=== PATIENT | female | born 1955 | race Caucasian/White ===

== ENCOUNTER → 2016-09-03 | Emergency (ER) | payer OTHER ==
[2016-09-03 05:23] VITALS: BP 114/64; PULSE 63; TEMP 97.5; BMI 29.9
--- NOTE | 2016-09-03 05:27 | PDOC ---
History of Present Illness - General Chief Complaint: Psychiatric Stated Complaint: PANIC ATTACK Time Seen by Provider: 09/03/16 05:08 - History of Present Illness Initial Comments: 09/03/16 05:18 CHIEF COMPLAINT: panic attack HISTORY OF PRESENT ILLNESS: 61 yo F with hx of hypothyroidism, HLD, HTN, and anxiety disorder presents to ED with c/o of "panic attack." Patient states she had an argument with someone at home and then became very anxious and shaky. She has a history of anxiety and takes clonazepam as needed, which she did today just as she called the ambulance. She denies any chest pain or SOB. She denies any suidicidal/homicidal ideation. No recent travel or sick contacts. PAST MEDICAL HISTORY: as per HPI. FAMILY HISTORY: Denies SOCIAL HISTORY:Denies tobacco, alcohol, illicit drug use. SURGICAL HISTORY: Denies ALLERGIES: PCN, ibuprofen, "stool softener" REVIEW OF SYSTEMS General/Constitutional: Denies fever or chills. Denies weakness, weight change. HEENT: Denies change in vision. Denies ear pain or discharge. Denies sore throat. Cardiovascular: Denies chest pain or shortness of breath. Respiratory: Denies cough, wheezing, or hemoptysis. Gastrointestinal: Denies nausea, vomiting, diarrhea or constipation. Denies rectal bleeding. Genitourinary: Denies dysuria, frequency, or change in urination. Musculoskeletal: Denies joint or muscle swelling or pain. Denies neck or back pain. Skin and breasts: Denies rash or easy bruising. Neurologic: Denies headache, vertigo, loss of consciousness, or loss of sensation. Psychiatric: "I feel anxious." PHYSICAL EXAM General Appearance: Well-appearing, appropriately dressed. No apparent distress , no intoxication. HEENT: EOMI, PERRLA, normal ENT inspection, normal voice, TMs normal, pharynx normal. No conjunctival pallor. No photophobia, scleral icterus. Neck: Supple. Trachea midline. No tenderness, rigidity, carotid bruit, stridor , lymphadenopathy, or thyromegaly. Respiratory/Chest: Lungs CTAB. No shortness of breath, chest tenderness, respiratory distress, accessory muscle use. No crackles, rales, rhonchi, stridor , wheezing, dullness Cardiovascular: RRR. S1, S2. No JVD, murmur, bradycardia, tachycardia. Vascular Pulses: Dorsalis-Pedis (R): 2+, Dorsalis-Pedis (L): 2+ Gastrointestinal/Abdominal: Normal bowel sounds. Abdomen soft, non-distended. No tenderness or rebound tenderness. No organomegaly, pulsatile mass, guarding , hernia, hepatomegaly, splenomegaly. Lymphatic: No adenopathy, tenderness. Musculoskeletal/Extremities: Normal inspection. FROM of all extremities, normal capillary refill. Pelvis Stable. No CVA tenderness. No tenderness to extremities, pedal edema, swelling, erythema or deformity. Integumentary: Appropriate color, dry, warm. No cyanosis, erythema, jaundice or rash Neurologic: hotel server II-XII intact. Fully oriented, alert. Appropriate mood/affect. Motor strength 5/5. No appreciable EOM palsy, facial droop or sensory deficit. 09/03/16 05:28 Past History - Past Medical History Allergies/Adverse Reactions: Allergies Allergy/AdvReac Type Severity Reaction Status Date / Time Penicillins Allergy Severe Hives Verified 09/03/16 05:12 ibuprofen [From Motrin] Allergy Intermediate Nausea Verified 09/03/16 05:12 STOOL SOFTNER Allergy Uncoded 09/03/16 05:12 Home Medications: Ambulatory Orders Finasteride 5 mg PO DAILY 01/24/16 Levothyroxine [Synthroid -] 88 mcg PO DAILY 01/24/16 Losartan Potassium 100 mg PO DAILY 01/24/16 Verapamil HCl [Verapamil ER] 180 mg PO DAILY 01/24/16 Clonazepam 0.25 mg PO HS #3 tab MDD 1 09/03/16 Ranitidine [Zantac -] 150 mg PO DAILY 09/03/16 Cancer: Yes (thyroid) Cardiac Disorders: Yes (SLOW HEART) GI Disorders: Yes (HEMMORHOIDS) HTN: Yes Hypercholesterolemia: Yes Suicide Attempt (Hx): No Thyroid Disease: Yes (HYPO) - Immunization History Td Vaccination: Yes Immunization Up to Date: Yes - Psycho/Social/Smoking Cessation Hx Anxiety: Yes Suicidal Ideation: No Smoking Status: No Smoking History: Never smoked Years of Tobacco Use: 0 Have you smoked in the past 12 months: No Number of Cigarettes Smoked Daily: 0 Cigars Per Day: 0 Hx Alcohol Use: No Drug/Substance Use Hx: No Substance Use Type: None Hx Substance Use Treatment: No Medical Decision Making - Medical Decision Making 09/03/16 05:31 61 yo F with hx of hypothyroidism, HLD, HTN, and anxiety disorder presents to ED with c/o of "panic attack." -EKG Patient states she is running out of her clonazepam and request medication. Discussed with patient that she needs to follow up with psych for continuing management of psych meds. 09/03/16 05:55 EKG unchanged from prior. [place] [employer] checked, no indication of controlled substance abuse. Will rx 3 tab clonazepam until patient can see psych. Patient reassessed. At this time she is sleeping in stretcher but arousable. She states she is feeling sleepy. Advised patient to f/u with psychiatry for further evaluation and management of chronic anxiety. Patient verbalized understanding and agrees to plan. *DC/Admit/Observation/Transfer Diagnosis at time of Disposition: Anxiety - Discharge Dispostion Admit: No - Prescriptions Prescriptions: Clonazepam 0.25 mg PO HS #3 tab MDD 1 - Referrals Referrals: Irwin Coyne MD [Primary Care Provider] - - Patient Instructions Printed Discharge Instructions: DI for Anxiety -- Adult Additional Instructions: Please take medication as prescribed. As discussed, you need to follow up with psychiatrist for further evaluation and management of your anxiety. If you experience any thoughts of suicide or homicide, please return to the ER immediately.
--- NOTE | 2016-09-03 11:35 | EKG ---
Test Reason : Blood Pressure : / mmHG Vent. Rate : 061 BPM Atrial Rate : 061 BPM P-R Int : 202 ms QRS Dur : 094 ms QT Int : 458 ms P-R-T Axes : 022 -34 054 degrees QTc Int : 461 ms NORMAL SINUS RHYTHM LEFT AXIS DEVIATION MODERATE VOLTAGE CRITERIA FOR LVH, MAY BE NORMAL VARIANT POSSIBLE LATERAL INFARCT , AGE UNDETERMINED ABNORMAL ECG WHEN COMPARED WITH ECG OF 28-JUN-2015 00:36, NONSPECIFIC T WAVE ABNORMALITY HAS REPLACED INVERTED T WAVES IN ANTERIOR LEADS Confirmed by ANGLE LIRA MD ([id number]) on 09/03/2016 11:34:54 AM Referred By: Confirmed By:ANGLE LIRA MD
== END | disposition home or self-care (01) ==
LOC: JER 04:59
DX: F41.9 Anxiety disorder, unspecified (principal); I10 Essential (primary) hypertension; E78.00 Pure hypercholesterolemia, unspecified; E78.5 Hyperlipidemia, unspecified; E03.9 Hypothyroidism, unspecified
CPT/HCPCS: 93005; 93010; 99282-25

== ENCOUNTER 2018-07-26 14:15 | Emergency (ER) | payer OTHER ==
[2018-07-26 14:58] VITALS: BP 147/78; PULSE 93; TEMP 98.1; BMI 29.2
--- NOTE | 2018-07-26 15:37 | PDOC ---
History of Present Illness - General Chief Complaint: Pain Stated Complaint: ABD PAIN Time Seen by Provider: 07/26/18 14:34 History Source: Patient Exam Limitations: No Limitations - History of Present Illness Travel History: No Initial Comments: 07/26/18 15:08 63-year-old female presents to ED with constipation for the past 3 days. Patient states was at her ENT specialist when she developed severe abdominal pain accompanied with dizziness and so Staffa called EMS and while waiting for EMS she gave herself a suppository secondary to feeling the urge to move her bowels but unable to. Patient states upon ED arrival she went to use the bathroom and was able to pass a small amount of brown stool which alleviated her discomfort. Patient states history of hemorrhoidectomy and constipation but relieved with [id number] medication. Timing/Duration: reports: gone now Quality: reports: moderate, cramping Abdominal Pain Onset Location: reports: RLQ, LLQ Pain Radiation: reports: no radiation Activities at Onset: reports: none Aggravating Factors: improves with: None Alleviating Factors: improves with: Defecation Past History - Travel Traveled outside of the country in the last 30 days: No - Past Medical History Allergies/Adverse Reactions: Allergies Allergy/AdvReac Type Severity Reaction Status Date / Time Penicillins Allergy Severe Hives Verified 09/03/16 05:12 ibuprofen [From Motrin] Allergy Intermediate Nausea Verified 09/03/16 05:12 STOOL SOFTNER Allergy Uncoded 09/03/16 05:12 Home Medications: Ambulatory Orders Finasteride 5 mg PO DAILY 01/24/16 Levothyroxine [Synthroid -] 88 mcg PO DAILY 01/24/16 Losartan Potassium 100 mg PO DAILY 01/24/16 Verapamil HCl [Verapamil ER] 180 mg PO DAILY 01/24/16 Clonazepam 0.25 mg PO HS #3 tab MDD 1 09/03/16 Ranitidine [Zantac -] 150 mg PO DAILY 09/03/16 Cancer: Yes (thyroid) Cardiac Disorders: Yes (SLOW HEART) COPD: No GI Disorders: Yes (HEMMORHOIDS) HTN: Yes Hypercholesterolemia: Yes Thyroid Disease: Yes (HYPO) - Immunization History Td Vaccination: Yes Immunization Up to Date: Yes - Suicide/Smoking/Psychosocial Hx Smoking Status: No Smoking History: Never smoked Years of Tobacco Use: 0 Have you smoked in the past 12 months: No Number of Cigarettes Smoked Daily: 0 Cigars Per Day: 0 Information on smoking cessation initiated: No Hx Alcohol Use: No Drug/Substance Use Hx: No Substance Use Type: None Hx Substance Use Treatment: No Patient Lives Alone: No Lives with/in: spouse/SO Abd/GI Specific PMHX - Complaint Specific PMHX GERD: No GI Ulcer Disease: No Review of Systems - Review of Systems Able to Perform ROS?: Yes Constitutional: No: Symptoms Reported HEENTM: No: Symptoms Reported Respiratory: No: Symptoms reported Cardiac (ROS): No: Symptoms Reported ABD/GI: Yes: Constipated, Abdominal cramping : No: Symptoms Reported Musculoskeletal: No: Symptoms Reported Integumentary: No: Symptoms Reported Endocrine: No: Symptoms Reported Hematologic/Lymphatic: No: Symptoms Reported *Physical Exam - Vital Signs Last Vital Signs Temp Pulse Resp BP Pulse Ox 98.1 F 93 H 16 147/78 100 07/26/18 14:17 07/26/18 14:17 07/26/18 14:17 07/26/18 14:17 07/26/18 14:17 - Physical Exam General Appearance: Yes: Nourished, Appropriately Dressed. No: Apparent Distress Respiratory/Chest: positive: Lungs Clear, Normal Breath Sounds. negative: Respiratory Distress, Accessory Muscle Use Cardiovascular: positive: Regular Rhythm, Regular Rate. negative: Murmur Gastrointestinal/Abdominal: positive: Normal Bowel Sounds, Soft. negative: Distended, Guarding, Rebound, Tenderness Musculoskeletal: negative: CVA Tenderness Extremity: negative: Pedal Edema Integumentary: positive: Normal Color, Warm, Moist Neurologic: positive: Motor Strength 5/5 (ambulatory). negative: Normal Mood/ Affect (anxious and pacing intermittently) Moderate Sedation - Procedure Monitoring Vital Signs: Procedure Monitoring Vital Signs Temperature 98.1 F 07/26/18 14:17 Pulse Rate 93 H 07/26/18 14:17 Respiratory Rate 16 07/26/18 14:17 Blood Pressure 147/78 07/26/18 14:17 O2 Sat by Pulse Oximetry (%) 100 07/26/18 14:17 ED Treatment Course - RADIOLOGY Radiology Studies Ordered: Category Date Time Status KUB (KID UR & BLAD) [RAD] Stat Radiology 07/26/18 14:53 Ordered Medical Decision Making - Medical Decision Making 07/26/18 15:20 Chief complaint: Constipation 3 days causing her increasing abdominal cramping and dizziness. Patient defecated upon my arrival when she arrived to the ER. Patient is currently asymptomatic. Exam: No abdominal tenderness or distention Plan: KUB 07/26/18 16:01 UB shows fecal retention without obstruction. Patient states had one more bowel movement since arrival. Patient states feeling much better. Patient will be given a prescription for mag citrate *DC/Admit/Observation/Transfer Diagnosis at time of Disposition: Constipation - Discharge Dispostion Disposition: HOME Condition at time of disposition: Improved - Referrals Referrals: Irwin Coyne MD [Primary Care Provider] - - Patient Instructions Printed Discharge Instructions: DI for Constipation Additional Instructions: Drink plenty of fluids and increase her ambulation/movement. Please take medication for constipation as prescribed. Return to ED if symptoms return or worsen. - Post Discharge Activity
== END 2018-07-26 16:38 | disposition home or self-care (01) ==
LOC: JER 14:15
DX: K59.00 Constipation, unspecified (principal); I10 Essential (primary) hypertension; E03.9 Hypothyroidism, unspecified; E78.00 Pure hypercholesterolemia, unspecified; Z86.79 Personal history of other diseases of the circulatory system; K64.9 Unspecified hemorrhoids; Z88.0 Allergy status to penicillin; Z88.8 Allergy status to other drugs, medicaments and biological substances
CPT/HCPCS: 74018-TC-FY; 99282-25

== ENCOUNTER 2019-05-28 13:53 | Emergency (ER) | payer OTHER ==
[2019-05-28 14:15] VITALS: BMI 28.1
--- NOTE | 2019-05-28 14:50 | PDOC ---
*Physical Exam - Vital Signs Last Vital Signs Temp Pulse Resp BP Pulse Ox 98.2 F 67 18 130/73 98 05/28/19 14:13 05/28/19 14:13 05/28/19 14:13 05/28/19 14:13 05/28/19 14:13 Discharge - Follow up/Referral Referrals: Irwin Coyne MD [Primary Care Provider] - - Patient Discharge Instructions - Post Discharge Activity
--- NOTE | 2019-05-28 14:55 | PDOC ---
History of Present Illness - General Chief Complaint: Pain Stated Complaint: NAUSEA/CHILLS Time Seen by Provider: 05/28/19 14:50 History Source: Patient, Other (Data Entry Assistant) Exam Limitations: No Limitations - History of Present Illness Initial Comments: 05/28/19 14:55 Juan Ramirez is a 64F with PMH hypothyroidism on Synthroid, HTN on Losartan, and chronic GERD on ranitidine/famotidine presenting with epigastric pain, nausea, diaphoresis, and tremulousness while eating. Patient has history of GERD and takes ranitidine daily, wakes up with epigastric burning each morning. Otherwise has been feeling normally healthy last night and this morning. Says she no longer takes ranitidine and now takes famotidine as of this morning. Took Losartan, famotidine, and Synthroid together this morning and felt fine, went to confucianist service without issue. 2 hours EMPLOYEE RELATION MANAGER, after confucianist went to confucianist basement to eat lunch where there was no heating, took a few bites of rice and meat and began feeling tremulous, diaphoretic, nausea and had epigastric pain. Data Entry Assistant called ambulance to bring patient to ED for evaluation. Episode has since resolved, now asymptomatic and feeling well. Data Entry Assistant at bedside does not report similar symptoms and was eating same food. Denies chest pain, SOB, palpitations, dizziness, weakness, vision problems, abdominal pain, urinary symptoms, C/D. Past History - Past Medical History Allergies/Adverse Reactions: Allergies Allergy/AdvReac Type Severity Reaction Status Date / Time Penicillins Allergy Severe Hives Verified 09/03/16 05:12 ibuprofen [From Motrin] Allergy Intermediate Nausea Verified 09/03/16 05:12 STOOL SOFTNER Allergy Uncoded 09/03/16 05:12 Home Medications: Ambulatory Orders Levothyroxine [Synthroid -] 137 mcg PO DAILY 01/24/16 Clonazepam 0.25 mg PO HS #3 tab MDD 1 09/03/16 Amlodipine Besylate 5 mg PO DAILY 05/28/19 Famotidine 20 mg PO DAILY 05/28/19 Losartan/Hydrochlorothiazide [Losartan-Hctz 50-12.5 mg Tab] 1 each PO DAILY 02/06 Cancer: Yes (thyroid) Cardiac Disorders: Yes (SLOW HEART) COPD: No GI Disorders: Yes (HEMMORHOIDS) HTN: Yes Hypercholesterolemia: Yes Thyroid Disease: Yes (HYPO) - Immunization History Td Vaccination: Yes Immunization Up to Date: Yes - Psycho Social/Smoking Cessation Hx Smoking Status: No Smoking History: Never smoked Years of Tobacco Use: 0 Have you smoked in the past 12 months: No Number of Cigarettes Smoked Daily: 0 Cigars Per Day: 0 Information on smoking cessation initiated: No Hx Alcohol Use: No Drug/Substance Use Hx: No Substance Use Type: None Hx Substance Use Treatment: No Review of Systems - Review of Systems Able to Perform ROS?: Yes Constitutional: Yes: Diaphoresis. No: Chills, Fever, Weakness HEENTM: No: Symptoms Reported Respiratory: No: Cough, Orthopnea, Shortness of Breath Cardiac (ROS): No: Chest Pain, Lightheadedness, Palpitations, Syncope ABD/GI: Yes: Nausea, Abdominal cramping. No: Constipated, Diarrhea, Poor Appetite, Poor Fluid Intake, Vomiting : No: Symptoms Reported Musculoskeletal: No: Symptoms Reported Integumentary: No: Symptoms Reported Neurological: No: Symptoms reported Endocrine: No: Symptoms Reported Hematologic/Lymphatic: No: Symptoms Reported All Other Systems: Reviewed and Negative *Physical Exam - Vital Signs Last Vital Signs Temp Pulse Resp BP Pulse Ox 98.2 F 67 18 130/73 98 05/28/19 14:13 05/28/19 14:13 05/28/19 14:13 05/28/19 14:13 05/28/19 14:13 - Physical Exam General Appearance: Yes: Nourished, Appropriately Dressed. No: Apparent Distress HEENT: positive: EOMI, SHANTELLE, Normal Voice, Symmetrical, Pharynx Normal, Hearing Grossly Normal. negative: Scleral Icterus (R), Scleral Icterus (L), Pharyngeal Erythema, Tonsillar Exudate, Tonsillar Erythema Neck: positive: Trachea midline, Rigid, Supple. negative: Tender, Lymphadenopathy (R), Lymphadenopathy (L) Respiratory/Chest: positive: Lungs Clear, Normal Breath Sounds. negative: Chest Tender, Respiratory Distress, Accessory Muscle Use, Crackles, Rales, Rhonchi, Stridor, Wheezing Cardiovascular: positive: Regular Rhythm, Regular Rate. negative: Edema, Murmur Gastrointestinal/Abdominal: positive: Normal Bowel Sounds. negative: Tender, Flat, Soft, Organomegaly, Pulsatile Mass Musculoskeletal: positive: Normal Inspection. negative: CVA Tenderness Extremity: positive: Normal Capillary Refill, Normal Inspection, Normal Range of Motion. negative: Tender, Pelvis Stable Integumentary: positive: Normal Color, Dry, Warm. 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 Patient presentation consistent with GERD vs. gastritis. However, epigastric pain could be 2/2 AZ vs. AAA vs. pancreatitis vs. GB pathology. Evaluation via: CBC CMP lipase CP ECG CXR Giving 1L IVF and protonix for GERD pain Plan for delta trop given her concerning presentation, risk of AZ. ECG shows: NSR, LAD, HR 67, QRS 98, QTc 454, has U waves noted in lead II, no ischemic changes, nonspecific T wave changes to V2, I, and aVL. 05/28/19 18:44 Labs unremarkable, trop <0.02. Patient feels well, tolerating food without issue, says she feels back to normal. Getting 2nd troponin at 7PM. Has GONZALEZ, giving 650mg Tylenol. 05/28/19 20:14 2nd troponin is <0.02. Stable to be discharged home with PMD f/u. Patient advised of results and to f/u with Dr. Jolley. Discharge - Discharge Information Problems reviewed: Yes Clinical Impression/Diagnosis: Epigastric pain, Nausea Condition: Stable Disposition: HOME - Follow up/Referral Referrals: Irwin Coyne MD [Primary Care Provider] - - Patient Discharge Instructions Additional Instructions: Today you were evaluated for abdominal pain after eating/taking medications. We have evaluated you and found no evidence of serious disease. Your blood labs do not show signs of infection, anemia, or heart disease. Your episode today was likely caused by the cold weather, possibly from taking your medications at one time or from the food eaten. At home, please try to take your medications spaced apart. The famotidine is a safe medication, and you should be able to take it without issue. If this happens again after taking it, please stop. Follow-up with your primary doctor in the next 3 days for further management of your reflux burning. If you experience worsening abdominal pain, chest pain, trouble breathing, fever, or any other new or concerning symptoms, please return to the emergency room. - Post Discharge Activity
--- NOTE | 2019-05-28 15:16 | PDOC ---
Documentation entered by Sammi Arreaga SCRIBE, acting as scribe for Sunita Godinez MD. Sunita Godinez MD: This documentation has been prepared by the Gibson winston Joy, SCRIBE, under my direction and personally reviewed by me in its entirety. I confirm that the documentation accurately reflects all work, treatment, procedures, and medical decision making performed by me. Attending Attestation - Resident Resident Name: Sunil Haile - ED Attending Attestation I have performed the following: I have examined & evaluated the patient, The case was reviewed & discussed with the resident, I agree w/resident's findings & plan - HPI HPI: 05/28/19 15:32 The patient is a 64 year old female with significant past medical history of GERD, HTN on losartan and hypothyroidism presenting to the ED with nausea and epigastric discomfort and heartburn earlier today. As per patient, before going to pentecostalism in the morning she took all of her medications (documented in EMR); she previously used to take zantac but has been switched to famotidine for her GERD. Patient states when she went to eat lunch in the pentecostalism basement, it was very cold, and there was no heat. Patient endorses after eating 3 bites of rice she started feeling sweaty, tremulous, epigastric discomfort and nausea. Patient s nurse sane decided to bring her to the ED for an evaluation. Patient is currently asymptomatic she admits to having AM symptoms of heartburn chronically, usually takes H2 virgil. Denies fever, chest pain, SOB, palpitation, dizziness, weakness, V, D, bladder and bowel problems, leg swelling, No sick contacts or travel. Allergies: Penicillins, ibuprofen, [Stool Softener] Past Medical History: GERD, hypothyroidism, HTN Social history: Lives with family. No tobacco, ETOH or drug use. Meds: as documented in EMR PMD: Dr. Stanford Gayle 05/28/19 15:35 05/29/19 11:53 - Physicial Exam PE: 05/28/19 15:14 Agree with the resident's HPI and PE as documented in the electronic medical record. NAD, well appearing, EOMI, PERRL, nl conjunctiva, anicteric; neck supple. lungs clear, RRR, abdomen soft nontender. no rebound, guarding. Back nontender. ACEVEDO x4, no focal neuro deficits. No peripheral edema. normal color for ethnicity , WWP. - Medical Decision Making 05/28/19 15:15 Vital Signs Temp Pulse Resp BP Pulse Ox 98.2 F 67 18 130/73 98 05/28/19 14:13 05/28/19 14:13 05/28/19 14:13 05/28/19 14:13 05/28/19 14:13 DDx chest pain: ACS, coronary vasospasm, NSTEMI, arrhythmia, unstable angina, PE , dissection, PUD, esophageal spasm, GERD, gastritis, pancreatitis, hepatitis, costochondritis, pneumonia, pleurisy, pericarditis/myocarditis. dehydration, electrolyte/metabolic derangements. Considered but clinically doubt based on HPI and PE: Low suspicion for pulmonary embolism or dissection. No evidence of ACS, pericarditis, myocarditis, pulmonary embolism, pneumothorax , pneumonia, Zoster, or esophageal perforation. Historically not abrupt in onset , tearing or ripping, pulses symmetric, no evidence of aortic dissection. EKG normal sinus rhythm at 67 bpm, no interval abnormalities, narrow QRS, ST and T wave segments and morphology normal. Nonspecific T wave abnormalities, presence of U waves after T waves, low amplitude<0.5mm, will check electrolytes 2 trops, EKG, labs heart score 3, for age, slightly suspicious, HTN history and age, low risk for mace at 4-6 weeks. GI cocktail, maalox, pepcid and IVF/reassess. pain free on clinical recheck, initial trop neg. repeat trop/ekg, lytes reviewed and wnl. pain free. if neg, discharge stable condition and f/u PCP, Dr Jolley 05/28/19 15:37 05/28/19 15:41 05/29/19 11:53 05/29/19 11:54 Heart Score/ECG Review - History History: Slightly suspicious - Electrocardiogram EKG: Normal - Age Age: >/= 65 - Risk Factors Risk Factors Heart Score: Yes Hx Hypertension Based on the list above the patient has:: 1-2 risk factors - Troponin Troponin: </= normal limit - Score Heart Score - Total: 3 #1 ECG reviewed & interpreted by me at: 14:20 General ECG Interpretation: Sinus Rhythm, Normal Rate, Normal Intervals Compared to previous ECG there are: No significant change 05/28/19 15:16 EKG normal sinus rhythm at 67 bpm, no interval abnormalities, narrow QRS, ST and T wave segments and morphology normal. Nonspecific T wave abnormalities, unchanged from prior +u waves after T waves 05/28/19 15:41
[2019-05-28] MEDS ORDERED: SODIUM CHLORIDE 0.9% 500 ML INFUS.BAG IV ONE (15:22)
[2019-05-28] MEDS ORDERED: PANTOPRAZOLE SODIUM 40 MG VIAL IVPUSH ONE (15:23)
[2019-05-28] MEDS ORDERED: PANTOPRAZOLE SODIUM 40 MG/100 ML BAG IVPB ONE (16:16)
[2019-05-28 16:27] LABS: BASO % 0.7 % (0-2.0); EOS % 1.2 % (0-4.5); HEMATOCRIT 39.9 % (32.4-45.2); HEMOGLOBIN 13.2 GM/dL (10.7-15.3); LYMPH % 21.5 % (8-40); MCH 30.2 pg (25.7-33.7); MCHC 33.2 g/dl (32.0-36.0); MEAN PLT VOLUME 8.9 fl (7.5-11.1); MONO % 6.3 % (3.8-10.2); NEUT % 70.3 % (42.8-82.8); PLATELET COUNT 224 K/MM3 (134-434); RBC 4.39 M/mm3 (3.60-5.2); WHITE BLOOD COUNT 6.5 K/mm3 (4.0-10.0)
[2019-05-28 17:02] LABS: ALBUMIN 4.1 g/dl (3.4-5.0); ALK PHOS 31 U/L (45-117); ANION GAP 6 MMOL/L (8-16); BILIRUBIN,TOTAL 0.4 mg/dL (0.2-1); BLOOD UREA NITROGEN 14.8 mg/dL (7-18); CALCIUM 9.4 mg/dL (8.5-10.1); CHLORIDE 104 mmol/L (98-107); CO2 30 mmol/L (21-32); CREATININE 0.7 mg/dL (0.55-1.3); GLUCOSE,RANDOM 158 mg/dL (74-106); LIPASE 208 U/L (73-393); PHOSPHOROUS 2.8 mg/dL (2.5-4.9); POTASSIUM 3.7 mmol/L (3.5-5.1); SGOT/AST 15 U/L (15-37); SGPT/ALT 26 U/L (13-61); SODIUM 140 mmol/L (136-145); TOT PROT 7.4 g/dl (6.4-8.2)
[2019-05-28 17:33] VITALS: TEMP 98.8
[2019-05-28] MEDS ORDERED: ACETAMINOPHEN 325 MG TABLET (FP) PO ONE (18:44)
[2019-05-28 20:39] VITALS: BP 136/78; PULSE 84
--- NOTE | 2019-05-29 00:53 | EKG ---
Test Reason : Blood Pressure : / mmHG Vent. Rate : 067 BPM Atrial Rate : 067 BPM P-R Int : 180 ms QRS Dur : 098 ms QT Int : 430 ms P-R-T Axes : 029 -38 078 degrees QTc Int : 454 ms NORMAL SINUS RHYTHM LEFT AXIS DEVIATION MODERATE VOLTAGE CRITERIA FOR LVH, MAY BE NORMAL VARIANT NONSPECIFIC ST AND T WAVE ABNORMALITY ABNORMAL ECG WHEN COMPARED WITH ECG OF 03-SEP-2016 05:35, NO SIGNIFICANT CHANGE WAS FOUND Confirmed by MARILYNN HTUSON MD ([id number]) on 05/29/2019 12:53:12 AM Referred By: Confirmed By:MARILYNN HUTSON MD
== END 2019-05-28 21:18 | disposition home or self-care (01) ==
LOC: JER 13:53
PROC: 3E033GC Introduction of Other Therapeutic Substance into Peripheral Vein, Percutaneous Approach (ICD-10-PCS; principal; 2019-05-28)
PROC: 3E0337Z Introduction of Electrolytic and Water Balance Substance into Peripheral Vein, Percutaneous Approach (ICD-10-PCS; 2019-05-28)
DX: R10.13 Epigastric pain (principal); R11.0 Nausea; I10 Essential (primary) hypertension; E03.9 Hypothyroidism, unspecified; K21.9 Gastro-esophageal reflux disease without esophagitis; Z88.0 Allergy status to penicillin; Z88.8 Allergy status to other drugs, medicaments and biological substances
CPT/HCPCS: 36415; 71046-TC-FY; 80053; 82550; 83690; 83735; 84100; 84484; 85025; 93005; 93010; 99284-25

== ENCOUNTER 2019-12-22 02:35 | Emergency (ER) | payer OTHER ==
--- NOTE | 2019-12-22 03:57 | PDOC ---
Attending Attestation - Resident Resident Name: Estuardo Avery - ED Attending Attestation I have performed the following: I have examined & evaluated the patient, The case was reviewed & discussed with the resident, I agree w/resident's findings & plan, Exceptions are as noted - HPI HPI: 12/22/19 05:20 See resident HPI - Physicial Exam PE: 12/22/19 05:20 Agree with documented exam - Medical Decision Making 12/22/19 05:21 Self limited episode of shivering, did not have characteristic features of seizure, stroke, rigors Well appearing w/o complaints or derangement on interview dc f/u pcp with return instructions Discharge - Discharge Information Problems reviewed: Yes Clinical Impression/Diagnosis: Anxiety Condition: Improved Disposition: HOME - Follow up/Referral Referrals: Irwin Coyne MD [Primary Care Provider] - - Patient Discharge Instructions Patient Printed Discharge Instructions: DI for Panic Disorder Additional Instructions: Please call your primary doctor or return to ED if you have another episode of shaking, weakness, chest pain, worsening tooth pain, fever/chills, or any other complaint. - Post Discharge Activity
[2019-12-22 04:22] VITALS: BP 147/57; PULSE 64; TEMP 98.3; BMI 29.1
--- NOTE | 2019-12-22 04:51 | PDOC ---
History of Present Illness - General Chief Complaint: Pain Stated Complaint: SHAKING,MOUTH PAIN History Source: Patient - History of Present Illness Initial Comments: 12/22/19 04:53 64F with a PMH of HTN, HLD, hypothyroidsim on synthroid (s/p thyroidectomy for malignancy), GERD, and panic disorder who presents after a one-hour episode of defuse shaking, inability to get her words out, and feeling cold. She states this began around 1am as she was trying to fall asleep. She states she has had panic attacks for 6 years with episodes of shaking. She denies focal weakness, slurred speech, confusion, tongue biting, incontinence, lightheadedness, chest pain, shortness of breath, abdominal pain. She states she had three teeth pulled for infection yesterday and complains of moderate pain, but does not want pain medication. PMH/PSH: as above Meds: losartan, HCTZ, thyroxine, omeprazole, fenofibrate Allergies: penicillin FH: non-contributory SH: denies alc/tob/drug use. From [place]. Misses her daughters who live [facility]. 12/22/19 04:59 Past History - Medical History Allergies/Adverse Reactions: Allergies Allergy/AdvReac Type Severity Reaction Status Date / Time Penicillins Allergy Severe Hives Verified 12/22/19 04:22 ibuprofen [From Motrin] Allergy Intermediate Nausea Verified 12/22/19 04:22 STOOL SOFTNER Allergy Uncoded 12/22/19 04:22 Home Medications: Ambulatory Orders Levothyroxine [Synthroid -] 137 mcg PO DAILY 01/24/16 Clonazepam 0.25 mg PO HS #3 tab MDD 1 09/03/16 Amlodipine Besylate 5 mg PO DAILY 05/28/19 Famotidine 20 mg PO DAILY 05/28/19 Losartan/Hydrochlorothiazide [Losartan-Hctz 50-12.5 mg Tab] 1 each PO DAILY 05/28/19 Cancer: Yes (thyroid) Cardiac Disorders: Yes (SLOW HEART) COPD: No GI Disorders: Yes (HEMMORHOIDS) HTN: Yes Hypercholesterolemia: Yes Thyroid Disease: Yes (HYPO) - Immunization History Td Vaccination: Yes Immunization Up to Date: Yes - Psycho-Social/Smoking History Smoking Status: No Smoking History: Never smoked Years of Tobacco Use: 0 Have you smoked in the past 12 months: No Number of Cigarettes Smoked Daily: 0 Cigars Per Day: 0 Information on smoking cessation initiated: Yes - Substance Abuse Hx (Audit-C & DAST Scrn) How often the patient has a drink containing alcohol: Never Score: In Men: 4 or > Positive; In Women: 3 or > Positive: 0 Screen Result (Pos requires Nsg. Audit-10AR): Negative In the last yr the pt used illegal drug/Rx for NonMed reason: No Score: Yes response is considered Positive: 0 Screen Result (Positive result requires Nsg. DAST-10): Negative Review of Systems - Review of Systems Constitutional: Yes: Chills. No: Fever HEENTM: No: Blurred Vision, Tearing Respiratory: No: Cough, Shortness of Breath Cardiac (ROS): No: Chest Pain ABD/GI: No: Constipated, Diarrhea : No: Burning, Dysuria Musculoskeletal: Yes: Joint Pain, Joint Stiffness Integumentary: No: Bruising, Change in Color Neurological: No: Headache, Numbness Psychiatric: Yes: Anxiety. No: Depression Endocrine: No: Intolerance to Cold, Intolerance to Heat Hematologic/Lymphatic: No: Anemia, Easy Bruising *Physical Exam - Vital Signs Last Vital Signs Temp Pulse Resp BP Pulse Ox 98.3 F 64 18 147/57 L 100 12/22/19 02:35 12/22/19 02:35 12/22/19 02:35 12/22/19 02:35 12/22/19 02:35 - Physical Exam General Appearance: No: Apparent Distress HEENT: positive: EOMI, SHANTELLE, Normal ENT Inspection Neck: negative: Tender Respiratory/Chest: positive: Lungs Clear Cardiovascular: positive: Regular Rhythm, Regular Rate Gastrointestinal/Abdominal: positive: Soft. negative: Tender Musculoskeletal: negative: CVA Tenderness, Vertebral Tenderness Extremity: positive: Normal Range of Motion Integumentary: positive: Normal Color Neurologic: positive: Normal Mood/Affect, Motor Strength 5/5 Medical Decision Making - Medical Decision Making 12/22/19 05:08 64yo female with HTN, HLD, hypothyroidism on synthroid, GERD, and panic disorder who presents after a one-hour episode of defuse shaking, inability to get her words out, and chills. Most likely a panic attach. Seizure less likely given the duration and lack of post ictal symptoms, tongue biting, or incontinence. Stroke less likely given lack of focal deficits. She felt cold, but no objective fever or signs of local inflammation or infection at site of pulled teeth, so post dental procedure infection unlikely. -Reassurance -DC home with PCP f/u Discharge - Discharge Information Problems reviewed: Yes Clinical Impression/Diagnosis: Anxiety Condition: Improved Disposition: HOME - Admission No - Follow up/Referral Referrals: Irwin Coyne MD [Primary Care Provider] - - Patient Discharge Instructions Patient Printed Discharge Instructions: DI for Panic Disorder Additional Instructions: Please call your primary doctor or return to ED if you have another episode of shaking, weakness, chest pain, worsening tooth pain, fever/chills, or any other complaint. - Post Discharge Activity
== END 2019-12-22 06:48 | disposition home or self-care (01) ==
LOC: JER 02:35
DX: F41.9 Anxiety disorder, unspecified (principal)
CPT/HCPCS: 99282-25

== ENCOUNTER 2021-09-20 15:45 | Emergency (ER) | payer OTHER ==
[2021-09-20 16:13] VITALS: TEMP 99.2; BMI 25.3
[2021-09-20] MEDS ORDERED: ONDANSETRON *ODT* 4 MG TABLET SL ONE (16:13)
[2021-09-20] MEDS ORDERED: ONDANSETRON *ODT* 4 MG TABLET ONE (16:16)
[2021-09-20] MEDS ORDERED: ACETAMINOPHEN 500 MG TABLET (FP) PO ONE (16:35)
[2021-09-20] MEDS ORDERED: FAMOTIDINE 10 MG TABLET PO ONE (16:35)
[2021-09-20] MEDS ORDERED: MAG HYDROX/AL HYDROX/SIMETH -MYLANTA- ORAL SUSPENSION PO ONE (16:35)
[2021-09-20] MEDS ORDERED: FAMOTIDINE 10 MG TABLET ONE (16:37)
[2021-09-20] MEDS ORDERED: MAG HYDROX/AL HYDROX/SIMETH 30 ML UNIT-DOSE CUP ONE (16:38)
[2021-09-20] MEDS ORDERED: ACETAMINOPHEN 325 MG TABLET (FP) ONE (16:38)
[2021-09-20 16:58] LABS: BASO % 0.7 % (0-2.0); EOS % 1.1 % (0-4.5); HEMATOCRIT 39.1 % (32.4-45.2); HEMOGLOBIN 13.3 GM/dL (10.7-15.3); LYMPH % 18.1 % (8-40); MCH 30.1 pg (25.7-33.7); MEAN CELL VOLUME 88.7 fl (80-96); MEAN PLT VOLUME 8.8 fl (7.5-11.1); MONO % 6.3 % (3.8-10.2); NEUT % 73.8 % (42.8-82.8); PLATELET COUNT 216 10^3/uL (134-434); RBC 4.41 M/mm3 (3.60-5.2); RDW 13.4 % (11.6-15.6); WHITE BLOOD COUNT 5.3 K/mm3 (4.0-10.0)
[2021-09-20 17:04] LABS: PH,URINE 7.5 (5.0-8.0); URINE APPEARANCE CLEAR; URINE BILIRUBIN NEGATIVE (NEGATIVE); URINE COLOR YELLOW; URINE GLUCOSE (UA) NEGATIVE (NEGATIVE); URINE KETONE NEGATIVE (NEGATIVE); URINE LEUK ESTERASE NEGATIVE (NEGATIVE); URINE NITRITE NEGATIVE (NEGATIVE); URINE PROTEIN NEGATIVE (NEGATIVE); URINE UROBILINOGEN 0.2 mg/dL (0.2-1.0)
[2021-09-20 17:23] LABS: ALBUMIN 4.6 g/dl (3.4-5.0); CALCIUM 9.6 mg/dL (8.5-10.1)
[2021-09-20 17:24] LABS: BLOOD UREA NITROGEN 12.6 mg/dL (7-18); MAGNESIUM 1.8 mg/dL (1.8-2.4)
[2021-09-20 17:26] LABS: CREATININE 0.7 mg/dL (0.55-1.3)
[2021-09-20 17:28] LABS: BILIRUBIN,TOTAL 0.6 mg/dL (0.2-1); TOT PROT 7.6 g/dl (6.4-8.2)
[2021-09-20 21:56] VITALS: BP 142/61; PULSE 52
== END 2021-09-20 22:15 | disposition home or self-care (01) ==
LOC: JER 15:45
DX: R11.0 Nausea (principal); I10 Essential (primary) hypertension
CPT/HCPCS: 36415; 71045-TC-FY; 80053; 81003; 83690; 83735; 84484; 85025; 87086; 93005; 93010; 99285-25; Q0162

== ENCOUNTER 2021-10-18 13:05 | Emergency (ER) | payer OTHER ==
[2021-10-18 13:26] VITALS: BP 154/72; PULSE 82; TEMP 97.8; BMI 25.5
[2021-10-18] MEDS ORDERED: FAMOTIDINE 10 MG TABLET PO ONE (14:00)
[2021-10-18] MEDS ORDERED: ALPRAZolam 1 MG TABLET PO PRN (14:01)
[2021-10-18] MEDS ORDERED: ALPRAZolam 0.25 MG TABLET ONE (14:09)
[2021-10-18] MEDS ORDERED: FAMOTIDINE 10 MG TABLET ONE (14:09)
== END 2021-10-18 15:14 | disposition home or self-care (01) ==
LOC: JER 13:05
DX: R10.13 Epigastric pain (principal); K21.9 Gastro-esophageal reflux disease without esophagitis; R20.2 Paresthesia of skin
CPT/HCPCS: 93005; 93010; 99283-25

== ENCOUNTER 2023-12-09 13:31 | Emergency (ER) | payer OTHER ==
[2023-12-09 13:42] VITALS: RESP 16; TEMP 99.1; BMI 24.6
[2023-12-09] MEDS ORDERED: ONDANSETRON 4 MG/2 ML VIAL ONE (15:47)
[2023-12-09] MEDS ORDERED: MAG HYDROX/AL HYDROX/SIMETH 30 ML UNIT-DOSE CUP ONE (15:47)
[2023-12-09] MEDS: MAG HYDROX/AL HYDROX/SIMETH 30 ML UNIT-DOSE CUP PO ONE (15:50)
[2023-12-09] MEDS: ONDANSETRON 4 MG/2 ML VIAL IVPUSH ONE (15:51)
[2023-12-09 15:55] LABS: BASO % 0.7 % (0-2.0); EOS % 0.6 % (0-4.5); HEMATOCRIT 39.1 % (32.4-45.2); HEMOGLOBIN 13.4 GM/dL (10.7-15.3); LYMPH % 14.6 % (8-40); MCH 30.6 pg (25.7-33.7); MCHC 34.2 g/dl (32.0-36.0); MEAN CELL VOLUME 89.4 fl (80-96); MEAN PLT VOLUME 8.7 fl (7.5-11.1); NEUT % 77.1 % (42.8-82.8); PLATELET COUNT 226 10^3/uL (134-434); RBC 4.37 M/mm3 (3.60-5.2); WHITE BLOOD COUNT 8.3 K/mm3 (4.0-10.0)
[2023-12-09] MEDS: FAMOTIDINE 20 MG/50 ML IVPB 20 MG/50 ML MG IVPB ONE (15:56)
[2023-12-09 16:00] LABS: INR 0.9 (0.83-1.09); PROTHROMBIN TIME (PATIENT) 10.4 SEC (9.7-13.0)
[2023-12-09 16:02] LABS: ACTIVATED PTT 29.7 SECONDS (25.2-36.5)
[2023-12-09] MEDS ORDERED: PANTOPRAZOLE 20 MG TABLET PO ONE (16:03)
[2023-12-09] MEDS: PANTOPRAZOLE 20 MG TABLET PO ONE (16:04)
[2023-12-09 16:11] LABS: POTASSIUM 3.7 mmol/L (3.5-5.1)
[2023-12-09 16:13] LABS: CALCIUM 9.4 mg/dL (8.5-10.1)
[2023-12-09 16:14] LABS: ALBUMIN 4.2 g/dl (3.4-5.0); BLOOD UREA NITROGEN 16.2 mg/dL (7-18)
[2023-12-09 16:17] LABS: CREATININE 0.7 mg/dL (0.55-1.3)
[2023-12-09 16:19] LABS: BILIRUBIN,TOTAL 0.5 mg/dL (0.2-1); TOT PROT 7.5 g/dl (6.4-8.2)
[2023-12-09 18:37] VITALS: BP 154/48; PULSE 68
== END 2023-12-09 19:58 | disposition home or self-care (01) ==
LOC: JER 13:31
PROC: 3E033GC Introduction of Other Therapeutic Substance into Peripheral Vein, Percutaneous Approach (ICD-10-PCS; principal; 2023-12-09)
DX: K21.9 Gastro-esophageal reflux disease without esophagitis (principal); R10.13 Epigastric pain; R07.9 Chest pain, unspecified; R11.0 Nausea
CPT/HCPCS: 36415; 71045-TC-FY; 80053; 84484; 85025; 85610; 85730; 93005; 93010; 99285-25

== ENCOUNTER 2024-02-27 13:36 | Emergency (ER) | payer OTHER ==
[2024-02-27 13:51] VITALS: RESP 20; TEMP 98.3; BMI 26.9
[2024-02-27 15:11] VITALS: BP 106/67; PULSE 66
[2024-02-27] MEDS: OFLOXACIN 0.3% OTIC SOLUTION 5 ML BOTTLE AS SCH (15:52)
[2024-02-27] MEDS ORDERED: OFLOXACIN 0.3% OTIC SOLUTION 5 ML BOTTLE AS SCH (22:00)
== END 2024-02-27 16:35 | disposition home or self-care (01) ==
LOC: JERFT 13:36
DX: H60.92 Unspecified otitis externa, left ear (principal); H92.02 Otalgia, left ear
CPT/HCPCS: 99283-25

== ENCOUNTER 2024-06-17 21:04 | Emergency (ER) | payer OTHER ==
[2024-06-17 21:11] VITALS: BP 147/77; PULSE 65; RESP 17; TEMP 97.9; BMI 23.0
== END 2024-06-17 23:08 | disposition home or self-care (01) ==
LOC: JER 21:04
DX: R51.9 Headache, unspecified (principal)
CPT/HCPCS: 82962; 99283-25